=== PATIENT | male | born 1990 | race Caucasian/White ===

== ENCOUNTER 2024-10-25 09:41 | Emergency (ER) | payer OTHER ==
[2024-10-25 09:51] VITALS: BP 147/103; BMI 30.4
[2024-10-25 10:15] VITALS: PULSE 83; RESP 20; TEMP 97.7
== END 2024-10-25 10:47 | disposition home or self-care (01) ==
LOC: JERFT 09:41 → JER 09:41 → JERFT 10:47
DX: Z48.02 Encounter for removal of sutures (principal)
CPT/HCPCS: 99281-25